=== PATIENT | male | born 1985 | race African-American/Black ===

== ENCOUNTER 2016-09-22 21:44 | Emergency (ER) | payer SELFPAY ==
[~2016-09-22] VITALS: Ht 182.9 cm; Wt 84.0 kg
[2016-09-23] MEDS ORDERED: HYDROCODONE/ACETAMINOPHEN 5/325MG TABLET PO ONE (00:45)
[2016-09-23 01:08] VITALS: BP 123/53
== END 2016-09-23 02:12 | disposition home or self-care (01) ==
LOC: ER 21:44
DX: K08.89 Other specified disorders of teeth and supporting structures (principal)
CPT/HCPCS: 99283

== ENCOUNTER 2016-10-05 10:28 | Emergency (ER) | payer SELFPAY ==
[~2016-10-05] VITALS: Ht 182.9 cm; Wt 84.0 kg
[2016-10-05 11:37] VITALS: BP 115/69
== END 2016-10-05 12:42 | disposition home or self-care (01) ==
LOC: ER 12:32
DX: J02.0 Streptococcal pharyngitis (principal)
CPT/HCPCS: 99283